=== PATIENT | female | born 1950 | race Caucasian/White ===

== ENCOUNTER 2024-10-30 05:17 | Emergency (ER) | payer OTHER, BC ==
[2024-10-30 05:20] VITALS: TEMP 97.8; BMI 36.6
[2024-10-30] MEDS ORDERED: ONDANSETRON 4 MG/2 ML VIAL ONE (06:17)
[2024-10-30] MEDS: ONDANSETRON 4 MG/2 ML VIAL IVPUSH ONE (06:20)
[2024-10-30 06:33] LABS: BASO % 0.7 % (0-2.0); EOS % 0.9 % (0-4.5); HEMATOCRIT 31.9 % (32.4-45.2); HEMOGLOBIN 10.5 GM/dL (10.7-15.3); MCH 28.4 pg (25.7-33.7); MCHC 32.9 g/dl (32.0-36.0); MEAN CELL VOLUME 86.2 fl (80-96); MEAN PLT VOLUME 6.7 fl (7.5-11.1); MONO % 5.6 % (3.8-10.2); NEUT % 83.8 % (42.8-82.8); PLATELET COUNT 218 10^3/uL (134-434); RDW 14.5 % (11.6-15.6); WHITE BLOOD COUNT 9.5 K/mm3 (4.0-10.0)
[2024-10-30 06:48] LABS: POTASSIUM 4.5 mmol/L (3.5-5.1)
[2024-10-30 06:50] LABS: CALCIUM 9.3 mg/dL (8.5-10.1)
[2024-10-30 06:51] LABS: ALBUMIN 3.8 g/dl (3.4-5.0); BLOOD UREA NITROGEN 36.8 mg/dL (7-18)
[2024-10-30 06:54] LABS: CREATININE 1.3 mg/dL (0.55-1.3)
[2024-10-30 06:56] LABS: BILIRUBIN,TOTAL 0.5 mg/dL (0.2-1); TOT PROT 7.3 g/dl (6.4-8.2)
[2024-10-30] MEDS ORDERED: METOCLOPRAMIDE HCL 10 MG TABLET (FP) PO ONE (12:20)
[2024-10-30 12:22] VITALS: BP 137/64; PULSE 67; RESP 18
[2024-10-30] MEDS: METOCLOPRAMIDE HCL 10 MG TABLET (FP) PO ONE (12:22)
[2024-10-30] MEDS: METOCLOPRAMIDE HCL INJECTION 10 MG/2 ML VIAL IVPUSH ONE (12:22)
== END 2024-10-30 13:00 | disposition home or self-care (01) ==
LOC: JER 05:17
PROC: 3E033GC Introduction of Other Therapeutic Substance into Peripheral Vein, Percutaneous Approach (ICD-10-PCS; principal; 2024-10-30)
DX: K80.70 Calculus of gallbladder and bile duct without cholecystitis without obstruction (principal); R11.2 Nausea with vomiting, unspecified; R19.7 Diarrhea, unspecified; R42 Dizziness and giddiness; Z20.822 Contact with and (suspected) exposure to COVID-19
CPT/HCPCS: 0241U-QW; 36415; 71045-TC-FY; 74177-TC; 76705-TC; 80053; 83690; 84484; 85025; 93005; 93010; 99285-25

== ENCOUNTER 2024-11-06 12:05 | Inpatient (IN) | payer OTHER, BC ==
[2024-11-06] MEDS ORDERED: MECLIZINE HCL 25 MG TABLET (FP) ONE (13:11)
[2024-11-06] MEDS ORDERED: ONDANSETRON 4 MG/2 ML VIAL ONE (13:11)
[2024-11-06] MEDS: SODIUM CHLORIDE 0.9% 500 ML INFUS.BAG IV ONE (13:38)
[2024-11-06] MEDS: ONDANSETRON 4 MG/2 ML VIAL IVPUSH ONE (13:38)
[2024-11-06] MEDS: MECLIZINE HCL 25 MG TABLET (FP) PO ONE (13:39)
[2024-11-06 13:48] LABS: BASO % 1.1 % (0-2.0); EOS % 1.5 % (0-4.5); HEMATOCRIT 30.3 % (32.4-45.2); HEMOGLOBIN 10.3 GM/dL (10.7-15.3); MCH 28.5 pg (25.7-33.7); MCHC 33.9 g/dl (32.0-36.0); MEAN PLT VOLUME 6.7 fl (7.5-11.1); MONO % 8.4 % (3.8-10.2); PLATELET COUNT 216 10^3/uL (134-434); RBC 3.61 M/mm3 (3.60-5.2); RDW 14.1 % (11.6-15.6); WHITE BLOOD COUNT 5.3 K/mm3 (4.0-10.0)
[2024-11-06 15:01] LABS: POTASSIUM 4.6 mmol/L (3.5-5.1)
[2024-11-06 15:04] LABS: CALCIUM 9.3 mg/dL (8.5-10.1)
[2024-11-06 15:05] LABS: ALBUMIN 3.8 g/dl (3.4-5.0); BLOOD UREA NITROGEN 27.4 mg/dL (7-18); MAGNESIUM 1.9 mg/dL (1.8-2.4)
[2024-11-06 15:08] LABS: CREATININE 1.1 mg/dL (0.55-1.3)
[2024-11-06 15:10] LABS: BILIRUBIN,TOTAL 0.4 mg/dL (0.2-1); TOT PROT 7.2 g/dl (6.4-8.2)
[2024-11-06 18:45] LABS: INR 1.06 (0.83-1.09); PROTHROMBIN TIME (PATIENT) 12.2 SEC (9.7-13.0)
[2024-11-07] MEDS: levETIRAcetam 500 MG TABLET (FP) PO SCH (00:20)
[2024-11-07 06:51] LABS: HEMATOCRIT 28.7 % (32.4-45.2); HEMOGLOBIN 9.7 GM/dL (10.7-15.3); MCH 28.7 pg (25.7-33.7); MCHC 33.8 g/dl (32.0-36.0); MEAN CELL VOLUME 84.8 fl (80-96); MEAN PLT VOLUME 6.8 fl (7.5-11.1); PLATELET COUNT 200 10^3/uL (134-434); RBC 3.39 M/mm3 (3.60-5.2); RDW 13.9 % (11.6-15.6); WHITE BLOOD COUNT 5.1 K/mm3 (4.0-10.0)
[2024-11-07 07:13] LABS: POTASSIUM 3.6 mmol/L (3.5-5.1)
[2024-11-07 07:20] LABS: CALCIUM 9.2 mg/dL (8.5-10.1)
[2024-11-07 07:21] LABS: ALBUMIN 3.4 g/dl (3.4-5.0); BLOOD UREA NITROGEN 24.1 mg/dL (7-18)
[2024-11-07 07:25] LABS: BILIRUBIN,TOTAL 0.5 mg/dL (0.2-1); CREATININE 1.1 mg/dL (0.55-1.3); IRON SERUM 57 ug/dL (50-175); TOT PROT 6.4 g/dl (6.4-8.2); TOTAL IRON BINDING CAPACITY 279 ug/dL (250-450)
[2024-11-07] MEDS: INSULIN ASPART SLIDING SCALE (NOVOLOG) 1 VIAL SQ SCH (07:53)
[2024-11-07 08:27] LABS: INR 1.15 (0.83-1.09); PROTHROMBIN TIME (PATIENT) 13.2 SEC (9.7-13.0)
[2024-11-07] MEDS: SPIRONOLACTONE 25 MG TABLET PO SCH (12:24)
[2024-11-07] MEDS: CARVEDILOL 12.5 MG TABLET (FP) PO SCH (12:24)
[2024-11-07] MEDS: FUROSEMIDE 40 MG TABLET (FP) PO SCH (12:24)
[2024-11-07] MEDS: SACUBITRIL/VALSARTAN 49 MG-51 MG TABLET PO SCH (12:24)
[2024-11-07] MEDS ORDERED: INSULIN ASPART SLIDING SCALE (NOVOLOG) 1 VIAL SQ ONE ×3 (12:27→17:42)
[2024-11-07] MEDS ORDERED: CARVEDILOL 25 MG TABLET (FP) ONE (22:49)
[2024-11-07] MEDS ORDERED: SACUBITRIL/VALSARTAN 49 MG-51 MG TABLET ONE (22:49)
[2024-11-07] MEDS ORDERED: ATORVASTATIN CA 40 MG TABLET (FP) ONE (22:49)
[2024-11-07] MEDS ORDERED: levETIRAcetam 500 MG TABLET (FP) PO ONE (22:49)
[2024-11-07] MEDS: ATORVASTATIN CA 40 MG TABLET (FP) PO SCH (22:50)
[2024-11-08 01:06] VITALS: BMI 32.3
[2024-11-08 08:27] LABS: BASO % 0.9 % (0-2.0); EOS % 2.5 % (0-4.5); HEMATOCRIT 30.5 % (32.4-45.2); HEMOGLOBIN 10.4 GM/dL (10.7-15.3); LYMPH % 19.5 % (8-40); MCH 28.8 pg (25.7-33.7); MCHC 34.2 g/dl (32.0-36.0); MEAN CELL VOLUME 84.1 fl (80-96); MONO % 9.8 % (3.8-10.2); NEUT % 67.3 % (42.8-82.8); PLATELET COUNT 209 10^3/uL (134-434); RBC 3.63 M/mm3 (3.60-5.2); RDW 14.1 % (11.6-15.6)
[2024-11-08 09:23] LABS: POTASSIUM 3.8 mmol/L (3.5-5.1)
[2024-11-08 09:27] LABS: CALCIUM 9.3 mg/dL (8.5-10.1)
[2024-11-08 09:28] LABS: ALBUMIN 3.6 g/dl (3.4-5.0); BLOOD UREA NITROGEN 23.3 mg/dL (7-18)
[2024-11-08 09:31] LABS: CREATININE 1.2 mg/dL (0.55-1.3)
[2024-11-08 09:34] LABS: BILIRUBIN,TOTAL 0.6 mg/dL (0.2-1); TOT PROT 6.7 g/dl (6.4-8.2)
[2024-11-08] MEDS: BISACODYL 10 MG SUPP.RECT PR ONE (11:17)
[2024-11-08] MEDS: MAGNESIUM HYDROX 2400MG/30ML ORAL SUSPENSION 30 ML CUP PO ONE (13:59)
[2024-11-08] MEDS: DOCUSATE SODIUM 100 MG CAPSULE (FP) PO ONE (13:59)
[2024-11-09 07:09] LABS: EOS % 2.1 % (0-4.5); HEMATOCRIT 28.2 % (32.4-45.2); HEMOGLOBIN 9.7 GM/dL (10.7-15.3); LYMPH % 22.4 % (8-40); MCH 28.8 pg (25.7-33.7); MCHC 34.5 g/dl (32.0-36.0); MEAN CELL VOLUME 83.4 fl (80-96); MEAN PLT VOLUME 6.8 fl (7.5-11.1); MONO % 11.1 % (3.8-10.2); NEUT % 63.4 % (42.8-82.8); PLATELET COUNT 192 10^3/uL (134-434); RBC 3.38 M/mm3 (3.60-5.2); RDW 13.9 % (11.6-15.6); WHITE BLOOD COUNT 5.1 K/mm3 (4.0-10.0)
[2024-11-09 07:27] LABS: POTASSIUM 3.9 mmol/L (3.5-5.1)
[2024-11-09 07:30] LABS: CALCIUM 8.9 mg/dL (8.5-10.1)
[2024-11-09 07:31] LABS: ALBUMIN 3.3 g/dl (3.4-5.0); BLOOD UREA NITROGEN 25.8 mg/dL (7-18)
[2024-11-09 07:34] LABS: CREATININE 1.2 mg/dL (0.55-1.3)
[2024-11-09 07:36] LABS: BILIRUBIN,TOTAL 0.8 mg/dL (0.2-1); TOT PROT 6.2 g/dl (6.4-8.2)
[2024-11-09 11:29] VITALS: BP 104/56; PULSE 75; RESP 17; TEMP 98.4
== END 2024-11-09 11:00 | disposition home or self-care (01) | DRG 71 ==
LOC: JER 12:05 → JERBED 19:05 → J4S 11-08 00:39
PROVIDERS: ADMIT Internal Medicine; ATTEND Nurse Practitioner Family
DX: G93.9 Disorder of brain, unspecified (principal); I50.22 Chronic systolic (congestive) heart failure; I11.0 Hypertensive heart disease with heart failure; E11.9 Type 2 diabetes mellitus without complications; R51.9 Headache, unspecified; R11.2 Nausea with vomiting, unspecified; K80.20 Calculus of gallbladder without cholecystitis without obstruction; I44.30 Unspecified atrioventricular block; R00.1 Bradycardia, unspecified; D64.9 Anemia, unspecified; R42 Dizziness and giddiness
CPT/HCPCS: 0241U-QW; 36415; 70450-TC; 70553-TC; 80053; 80061; 82962; 83036; 83540; 83550; 83735; 84443; 85025; 85027; 85045; 85610; 86850; 86900; 86901; 93005; 93010; 93306-TC; 99285-25